=== PATIENT | male | born 1990 ===

== ENCOUNTER 2024-02-10 14:48 | Outpatient (REF) | payer BC, SELFPAY ==
[2024-02-10 15:09] LABS: Absolute Basophil Count 0.03 10^3/uL (0.0-0.2); Absolute Lymphocyte Count 1.13 10^3/uL (1.2-3.4); Absolute Monocyte Count 0.31 10^3/uL (0.1-0.8); Basophils % 0.7 %; Eosinophils % 2.3 %; HGB 15.5 g/dL (13.5-17.5); Lymphocytes % 26.5 %; MCH 28.4 pg (27.0-33.0); MCHC 33.7 % (32.0-36.0); MCV 84 fL (80-95); MPV 9.3 fL (8.0-11.0); Monocytes % 7.3 %; Neutrophils % 63.2 %; Platelet Count 261 10^3/uL (130-400); RBC 5.46 10^6/uL (4.36-5.78); RDW 12.5 % (11.8-14.1); RDW-SD 38.1 fL; WBC 4.27 10^3/uL (4.4-10.8)
[2024-02-10 15:29] LABS: Hemoglobin A1C 5.5 % (<5.7)
[2024-02-10 15:32] LABS: ALT 60 U/L (16-63); AST 24 U/L (15-37); Albumin 4.3 g/dL (3.4-5.0); Alkaline Phosphatase 51 U/L (46-116); Anion Gap 10.1 mmol/L (3-11); BUN 12 mg/dL (7-18); Bilirubin, Total 0.8 mg/dL (0.2-1.0); CO2 29.9 mmol/L (21.0-32.0); CREATININE 0.8 mg/dL (0.70-1.30); Calcium 9.8 mg/dL (8.5-10.1); Calculated LDL 200 mg/dL (<100); Chloride 103 mmol/L (98-107); Cholesterol 262 mg/dL (<200); Estimated GFR 121.34 (mL/min/1.73m2); Glucose 100 mg/dL (74-106); HDL Cholesterol 50 mg/dL (40-60); Potassium 4.1 mmol/L (3.5-5.1); Sodium 143 mmol/L (136-145); Total Protein 7.4 g/dL (6.4-8.2); Triglyceride 64 mg/dL (<150)
[2024-02-10 16:10] LABS: Vitamin D 25 Total 22.9 ng/mL (30-100)
[2024-02-10 16:49] LABS: TSH (W/Ref FT4) 3.92 uIU/mL (0.36-3.74)
[2024-02-10 17:09] LABS: FREE T4 1.05 ng/dL (0.76-1.46)
== END 2024-02-10 14:49 | disposition home or self-care (01) ==
LOC: NCHCN 14:48
PROVIDERS: Visit Provider Nurse Practitioner Family
DX: Z00.00 Encounter for general adult medical examination without abnormal findings (principal)
CPT/HCPCS: 80053; 80061; 82306; 83036; 84439; 84443; 85025

== ENCOUNTER 2024-06-01 14:35 | Outpatient (REF) | payer BC, SELFPAY ==
[2024-06-01 16:29] LABS: Calculated LDL 176 mg/dL (<100); Cholesterol 232 mg/dL (<200); HDL Cholesterol 42 mg/dL (40-60); Triglyceride 74 mg/dL (<150); Vitamin D 25 Total 30.7 ng/mL (30-100)
== END 2024-06-01 14:36 | disposition home or self-care (01) ==
LOC: NCHCN 14:35
PROVIDERS: PCP Nurse Practitioner Family; Visit Provider Nurse Practitioner Family
DX: E55.9 Vitamin D deficiency, unspecified (principal); E78.5 Hyperlipidemia, unspecified
CPT/HCPCS: 80061; 82306

== ENCOUNTER 2024-06-20 18:13 | Outpatient (REF) | payer BC, SELFPAY ==
[2024-06-20 15:45] LABS: Bilirubin Negative (Negative); Blood Negative (Negative); Clarity Clear (Clear); Glucose Negative (Negative); Ketones Negative (Negative); Leukocyte Esterase Negative (Negative); Nitrite Negative (Negative); Urobilinogen 0.2 mg/dL (Up to 0.2)
== END 2024-06-20 18:14 | disposition home or self-care (01) ==
LOC: NCHCN 18:13
PROVIDERS: PCP Nurse Practitioner Family; Visit Provider Nurse Practitioner Family
DX: R36.1 Hematospermia (principal)
CPT/HCPCS: 81003

== ENCOUNTER 2024-06-22 19:04 | Outpatient (REF) | payer BC, SELFPAY ==
[2024-07-02 11:49] LABS: Misc Referral (MAYO) See Comments
== END 2024-06-22 19:05 | disposition home or self-care (01) ==
LOC: NCHCN 19:04
PROVIDERS: PCP Nurse Practitioner Family; Visit Provider Nurse Practitioner Family
DX: R36.1 Hematospermia (principal)
CPT/HCPCS: 87661; 90656